=== PATIENT | female | born 1990 | race Hispanic/Latino ===

== ENCOUNTER 2017-10-10 14:14 | Emergency (ER) | payer MEDICAID, OTHER | END 2017-10-10 14:36 | disposition home or self-care (01) | LOC: EDH 14:14 | DX: K04.7 Periapical abscess without sinus (principal); J45.909 Unspecified asthma, uncomplicated ==

== ENCOUNTER 2018-08-02 19:26 | Inpatient (IN) | payer MEDICAID | END 2018-08-04 19:15 | disposition home or self-care (01) | LOC: WSH 08-04 → LDH 19:26 | PROC: 10E0XZZ Delivery of Products of Conception, External Approach (ICD-10-PCS; principal; ~2018-08-02) | DX: O75.3 Other infection during labor (principal); B95.1 Streptococcus, group B, as the cause of diseases classified elsewhere; Z37.0 Single live birth ==

== ENCOUNTER 2024-12-02 12:20 | Emergency (ER) | payer BC, MEDICAID ==
[~2024-12-02] VITALS: Ht 157.5 cm; Wt 99.8 kg
[~2024-12-02 12:20] MED LIST: ALBU0.63 IH; CETI10CA5 PO; PREN1TAB80 PO
--- NOTE | 2024-12-02 12:37 | ERN ---
ED Note History of Present Illness Stated Complaint: FINGER LACERATION Chief Complaint: Laceration/Avulsion Time Seen by MD: 12:24 Time Seen by Midlevel: 12:25 Dictation: 34-year-old female presents to the emergency department for evaluation of having sustained injury to the 3rd digit of the right hand. She states that she was attempting to arrange some furniture when she scraped herself with a metal pipe along the dorsal aspect of the 3rd digit of the right hand. At this time, she rates her level of discomfort as a 3/10. She states that she is up-to-date with her tetanus immunization. Patient states that pain is primarily with movement. Upon initial evaluation, she is noted to have controlled bleeding and in no acute distress. Allergies: Uncoded Allergies: BOLOGNA (Allergy, HIVES, 09/29/11) Emergency Care SERVICE DOG TRAINER: None Home Meds Reported Medications Albuterol Sulfate (Albuterol Sulfate) 0.63 Mg/3 Ml Vial.neb, 0.63 MG IH AD for sob, wheezing, INH 08/03/18 Vits W-Ca,Fe,FA(<1Mg) ( Vitamins) 1 Each Tablet, 1 EACH PO DAILYDINNER, TAB 08/03/18 Cetirizine HCl (Zyrtec) 10 Mg Capsule, 10 MG PO DAILYDINNER, CAP 08/03/18 Past Medical History Past Medical History: Ovarian Cyst Surgical History: None PSYCH History: no pertinent psych hx LMP: Oct 03, 2024 : 3 Para: 3 Aborts: 0 RN Note Reviewed/Agreed w/PFSH: Yes Review of System Dictation Skin: Laceration of the 3rd finger of right hand Initial Vital Sign VS Vital Signs Date Time Temp Pulse Resp B/P (MAP) Pulse Ox O2 Delivery O2 Flow Rate FiO2 12/02/24 12:22 98.2 76 16 129/66 99 Room Air 0 12/02/24 12:38 21 Physical Exam Dictation General: awake, alert, NAD Head/Face: Normocephalic, atraumatic Eyes: PERRL, EOMI ENT: Oral mucosa moist Neck: Trachea midline, supple Cardiovascular: RRR, no edema Respiratory: Symmetrical, non-labored Abdomen: Soft, non-tender, non-distended, no guarding. Skin: Warm, dry, avulsion injury to the 3rd digit of the right hand along the PIP joint measuring 1 cm by point 3 cm with no active bleeding. MS/Extremity: Pulses equal, no cyanosis, neurovascular intact, FROM, no signs of tendon injury. Neuro: COAx4, GCS 15, steady gait, Psych: Normal behavior, mood, and affect normal Results (Laboratory/Radiology) X-RAY Comment: Three-view x-ray of the fingers of the right hand with no cortical anomalies or deformities as interpreted by me. ED Course ED Course Orders Procedure Category Date Status Time Acetaminophen 500mg PHA 12/02/24 Complete Tab (Tylenol 500mg T 12:30 Finger(S) 2+Vws Rt RAD 12/02/24 Taken 12:30 Wound Care (Er) CPOE 12/02/24 Transmitted 12:30 Current Medications Medications (Trade) Dose Ordered Sig/Aneta Route PRN Reason Start Time Stop Time Status Last Admin Dose Admin Acetaminophen (TYLenol 500MG TAB) 1,000 mg ONCE ONCE PO 12/02/24 12:30 12/02/24 12:33 DC 12/02/24 12:45 Vital Signs Date Time Temp Pulse Resp B/P (MAP) Pulse Ox O2 Delivery O2 Flow Rate FiO2 12/02/24 12:38 98.2 71 16 128/72 98 Room Air* 0 21 12/02/24 12:22 98.2 76 16 129/66 99 Room Air 0 Medical Decision Making MDM MDM: Differential diagnosis: Avulsion laceration, abrasion, phalanx fracture. Rationale: Tests considered and ordered secondary to shared decision making include: Previous outside records reviewed: Old ER visits. Risk of complication and/or morbidity or mortality of patient management: None Medications-Per medication reconciliation Need for hospitalization: Patient does not meet criteria for hospitalization. Need for emergency major/minor surgery: No There are no social concerns with this patient. Prescription drug management Prescriptions will include symptomatic care Patient's prior external medical records from other ER visits were reviewed by me as indicated. Prior testing and results from previous visits were reviewed. Prior tests were taken into account with medical decision making and resource utilization, independent historian/historians were used to obtain complete medical history. I independently interpreted the test that were performed, results were reviewed by me and considered findings on radiology if ordered. Medical management and examination interpretation discussions were had by me with other qualified healthcare professionals as indicated for the patient's care. DX & DISP Disposition: Discharge Departure Impression: Primary Impression: Avulsion of skin of finger Condition: Stable Referrals: DEE STEINER MD (PCP) Time of Disposition: 13:01 OL[place] WALL Dec 02, 2024 12:37
[2024-12-02 12:38] VITALS: BP 128/72; PULSE 71; RESP 16; TEMP 98.3; O2SAT 98
--- NOTE | 2024-12-02 12:42 | NUR ---
WOUNDCARE COMPLETED PER BACTERIOLOGIST MEDICAL INSTRUCTION NON ADHEARANT PRESSURE DRESSING TO MID FINGER CIRCULATION INTACT
--- NOTE | 2024-12-02 13:12 | HMCIMG ---
EXAM: Right third Finger, 2 View. CLINICAL HISTORY: pain COMPARISON: None provided. FINDINGS: BONES: No acute fracture or aggressive appearing osseous lesion. JOINTS: No dislocation. The joint spaces are normal. SOFT TISSUES: The soft tissues are unremarkable. IMPRESSION: No acute osseous abnormality. No acute fracture or dislocation. /Hopkins
== END 2024-12-02 13:17 | disposition home or self-care (01) ==
LOC: EDH 12:20
DX: S61.202A Unspecified open wound of right middle finger without damage to nail, initial encounter (principal); W22.8XXA Striking against or struck by other objects, initial encounter; Y93.89 Activity, other specified; Y92.89 Other specified places as the place of occurrence of the external cause; Y99.8 Other external cause status
CPT/HCPCS: 73140; 99283